=== PATIENT | male | born 1945 | race Caucasian/White ===

== ENCOUNTER 2020-11-15 06:08 | Emergency (ER) | payer MEDICARE, SELFPAY ==
[2020-11-15] VITALS (52 sets, daily range): BP systolic 87–146; BP diastolic 56–77; PULSE 60–167; RESP 3–21; TEMP 36.3; O2SAT 95–100; BMI 23.1
--- NOTE | 2020-11-15 06:19 | ED.CHESTPAIN ---
HPI - Chest Pain <Manfred Stern MD - Last Filed: 11/15/20 23:38> General Chief Complaint: Arrhythmia/Palpitations Stated Complaint: Irregular Heart Beat Time Seen by Provider: 11/15/20 06:19 Source: patient Mode of arrival: Ambulatory Limitations: no limitations History of Present Illness HPI narrative: The patient arrives with palpitations. He woke about 4:15 this morning from sleep with the symptoms. He has history of paroxysmal atrial fib. His 1st episode was about 2 years ago, he underwent cardioversion. He has had another episode since then, he apparently was converted with acupuncture. He is on medications for chronic AFib, no medications for hypertension he has no associated chest pain. He denies orthopnea or peripheral edema. He denies recent illness. He has had no headache, sore throat, cough or dyspnea. He has no peripheral edema with the symptoms. He is a nonsmoker. Related Data Allergies Allergy/AdvReac Type Severity Reaction Status Date / Time hay fever Allergy Uncoded 11/15/20 06:22 Review of Systems <Manfred Stern MD - Last Filed: 11/15/20 23:38> Constitutional Constitutional: Denies chills, Denies fever(s), Denies headache(s), Denies lethargy and Reports weakness Eyes Eyes: Denies change in vision ENT Ears, Nose, Mouth, and Throat: Denies headache(s) and Denies sore throat Cardiovascular Cardiovascular: Denies chest pain, Reports irregular heart rhythm, Denies lightheadedness, Reports palpitations, Denies dyspnea and Denies orthopnea Respiratory Respiratory: Denies cough, Denies dyspnea and Denies wheezing Gastrointestinal Gastrointestinal: Denies abdominal pain, Denies diarrhea, Denies nausea and Denies vomiting Musculoskeletal Comments: No lower extremity edema or tenderness. Integumentary/Breasts Skin/Breast: Denies rash Neurologic Neurologic: Denies confusion, Denies headache(s) and Reports weakness Comments: No focal numbness or weakness. Psychiatric Psychiatric: Denies anxiety and Denies confusion Endocrine Endocrine: Reports palpitations Allergic/Immunologic Allergic/Immunologic: Denies wheezing Patient History <Manfred Stern MD - Last Filed: 11/15/20 23:38> Medical History (Updated 11/15/20 @ 07:40 by Manfred Stern MD) History of cardioversion Paroxysmal atrial fibrillation Social History Smoking Status: Never smoker Exam <Manfred Stern MD - Last Filed: 11/15/20 23:38> Initial Vital Signs Initial Vital Signs: Vital Signs Temperature 97.3 F L 11/15/20 06:15 Pulse Rate 156 H 11/15/20 06:15 Respiratory Rate 18 11/15/20 06:15 Blood Pressure 130/72 11/15/20 06:15 Pulse Oximetry 98 11/15/20 06:15 <Shira Abreu DO - Last Filed: 11/15/20 11:02> Narrative Exam Narrative: GENERAL: Alert, in no x3 t, thin, well-appearing male in mild distress. HEENT: Head normocephalic, atraumatic, EOMI, pupils reactive, face symmetric, moist mucous membranes NECK: Supple, full range of motion CARDIOVASCULAR: Irregularly irregular rate and rhythm without murmurs, rubs or gallops. RESPIRATORY: Breath sounds equal bilaterally, no wheezes rales or rhonchi. ABDOMEN: Soft, nontender. Normoactive bowel sounds all 4 quadrants. : No CVA tenderness EXTREMITIES: Patient's left arm is in a shoulder splint. He has significant bruising of the left upper extremity and into his hand. Neurovascularly intact. NEUROLOGICAL: Cranial nerves II through XII grossly intact. Moving all extremities SKIN: Warm, dry, no petechiae, no rashes or lesions. Initial Vital Signs Initial Vital Signs: Vital Signs Temperature 97.3 F L 11/15/20 06:15 Pulse Rate 156 H 11/15/20 06:15 Respiratory Rate 18 11/15/20 06:15 Blood Pressure 130/72 11/15/20 06:15 Pulse Oximetry 98 11/15/20 06:15 <Shira Abreu DO - Last Filed: 11/15/20 11:02> Cardioversion Consent Signed: Yes Stability: Stable Number of attempts (shocks): 1 Joules used: 150 Cardiac rhythm post-cardioversion: normal sinus rhythm. Procedural Sedation Consent signed: Yes Time out performed: Yes Indication: cardioversion ASA Class: I Mallampati Airway Classification: Class II Time of Last PO Intake: 11:00 Preparation: cardiac catheterization technician applied, pulse oximeter, capnometry used, supplemental O2 applied, suction/airway equipment at bedside and IV secured IV Etomidate dose (mg): 7 ED Sedation Level: Minimal Patient Tolerated Procedure: Well Complications: Respiratory Depression-Repositioning Required (mild laryngospasm, O2 ) Interventions: Assist by BVM (1-2 minutes) <Shira Abreu DO - Last Filed: 11/15/20 11:02> CHADS-VASc Congestive heart failure: no Hypertension: no Age 75 years or older: yes Diabetes mellitus: no Stroke, TIA, or TE: no Vascular disease: no Age 65 to 74 years: no Sex category (female): Male CHADS-VASc Score: 2 Course <Manfred Stern MD - Last Filed: 11/15/20 23:38> Orders Ordered: Discontinued Medications Etomidate (Etomidate 2 Mg/Ml 10 Ml Vial) 7 mg IV NOW ONE Stop: 11/15/20 08:17 Last Admin: 11/15/20 08:35 Dose: 7 mg Documented by: MITCHEL Sodium Chloride (Normal Saline 0.9%) 1,000 mls @ 150 mls/hr IV CONT [facility] Last Infusion: 11/15/20 09:48 Dose: 0 mls/hr Documented by: Admin: 11/15/20 06:37 Dose: 150 mls/hr Documented by: REGGIE Metoprolol Tartrate (Metoprolol Tartrate 5 Mg/5 Ml Inj) 5 mg IV Q5M [facility] Stop: 11/15/20 06:41 Last Admin: 11/15/20 06:47 Dose: 5 mg Documented by: Admin: 11/15/20 06:38 Dose: 5 mg Documented by: REGGIE Vital Signs Vital signs: Vital Signs - 8 hr 11/15/20 06:15 11/15/20 06:24 11/15/20 06:25 Temperature 97.3 F L Pulse Rate 156 H 158 H 167 H Respiratory Rate 18 18 20 Blood Pressure 130/72 Blood Pressure [Right Arm] Pulse Oximetry 98 99 98 11/15/20 06:30 11/15/20 06:31 11/15/20 06:35 Temperature Pulse Rate 159 H 157 H 157 H Respiratory Rate 18 16 19 Blood Pressure 115/71 Blood Pressure [Right Arm] Pulse Oximetry 96 96 96 11/15/20 06:38 11/15/20 06:40 11/15/20 06:45 Temperature Pulse Rate 150 H 156 H 147 H Respiratory Rate 14 18 12 Blood Pressure 115/74 122/77 Blood Pressure [Right Arm] Pulse Oximetry 96 96 97 11/15/20 06:46 11/15/20 06:50 11/15/20 06:51 Temperature Pulse Rate 137 H 140 H 139 H Respiratory Rate 13 15 15 Blood Pressure 124/59 L 98/66 Blood Pressure [Right Arm] Pulse Oximetry 97 97 97 11/15/20 06:55 11/15/20 07:00 11/15/20 07:05 Temperature Pulse Rate 139 H 126 H 127 H Respiratory Rate 16 15 13 Blood Pressure 90/60 106/72 110/68 Blood Pressure [Right Arm] Pulse Oximetry 98 97 97 11/15/20 07:10 11/15/20 07:15 11/15/20 07:20 Temperature Pulse Rate 137 H 135 H 124 H Respiratory Rate 13 15 16 Blood Pressure 103/58 L 118/69 126/67 Blood Pressure [Right Arm] Pulse Oximetry 98 97 98 11/15/20 07:37 11/15/20 07:38 11/15/20 07:40 Temperature Pulse Rate 140 H 134 H 142 H Respiratory Rate 6 L 3 L 15 Blood Pressure 107/58 L Blood Pressure [Right Arm] Pulse Oximetry 97 97 96 11/15/20 07:45 11/15/20 07:50 11/15/20 07:55 Temperature Pulse Rate 139 H 139 H 139 H Respiratory Rate 14 15 14 Blood Pressure Blood Pressure [Right Arm] Pulse Oximetry 96 96 96 11/15/20 08:00 11/15/20 08:05 11/15/20 08:10 Temperature Pulse Rate 128 H 133 H 146 H Respiratory Rate 16 20 10 L Blood Pressure Blood Pressure [Right Arm] Pulse Oximetry 96 96 97 11/15/20 08:15 11/15/20 08:30 11/15/20 08:31 Temperature Pulse Rate 142 H 142 H Respiratory Rate 17 18 Blood Pressure 87/62 L 104/68 Blood Pressure [Right Arm] 127/74 Pulse Oximetry 98 97 11/15/20 08:35 11/15/20 08:37 11/15/20 08:40 Temperature Pulse Rate 152 H 73 67 Respiratory Rate 14 16 14 Blood Pressure 104/76 127/74 146/77 H Blood Pressure [Right Arm] Pulse Oximetry 97 96 100 11/15/20 08:45 11/15/20 08:50 11/15/20 08:55 Temperature Pulse Rate 65 64 65 Respiratory Rate 15 17 16 Blood Pressure 118/73 117/74 133/76 Blood Pressure [Right Arm] Pulse Oximetry 99 98 98 11/15/20 09:00 11/15/20 09:05 11/15/20 09:10 Temperature Pulse Rate 65 62 62 Respiratory Rate 18 17 12 Blood Pressure 116/72 Blood Pressure [Right Arm] Pulse Oximetry 96 96 96 11/15/20 09:15 11/15/20 09:20 11/15/20 09:25 Temperature Pulse Rate 61 61 60 Respiratory Rate 14 14 15 Blood Pressure 103/64 Blood Pressure [Right Arm] Pulse Oximetry 95 96 96 11/15/20 09:30 11/15/20 09:35 11/15/20 09:40 Temperature Pulse Rate 64 62 60 Respiratory Rate 21 13 15 Blood Pressure 99/63 Blood Pressure [Right Arm] Pulse Oximetry 96 95 96 11/15/20 09:45 11/15/20 09:50 11/15/20 09:55 Temperature Pulse Rate 62 62 62 Respiratory Rate 16 15 13 Blood Pressure 101/65 Blood Pressure [Right Arm] Pulse Oximetry 97 97 97 11/15/20 10:00 11/15/20 10:05 11/15/20 10:10 Temperature Pulse Rate 62 60 64 Respiratory Rate 15 17 19 Blood Pressure 101/56 L Blood Pressure [Right Arm] Pulse Oximetry 96 95 98 11/15/20 10:15 Temperature Pulse Rate 64 Respiratory Rate 14 Blood Pressure 110/62 Blood Pressure [Right Arm] Pulse Oximetry 97 <Shira Abreu, - Last Filed: 11/15/20 11:02> Orders Ordered: Discontinued Medications Etomidate (Etomidate 2 Mg/Ml 10 Ml Vial) 7 mg IV NOW ONE Stop: 11/15/20 08:17 Last Admin: 11/15/20 08:35 Dose: 7 mg Documented by: MITCHEL Sodium Chloride (Normal Saline 0.9%) 1,000 mls @ 150 mls/hr IV CONT [facility] Last Infusion: 11/15/20 09:48 Dose: 0 mls/hr Documented by: Admin: 01/19/21 06:37 Dose: 150 mls/hr Documented by: REGGIE Metoprolol Tartrate (Metoprolol Tartrate 5 Mg/5 Ml Inj) 5 mg IV Q5M [facility] Stop: 11/15/20 06:41 Last Admin: 11/15/20 06:47 Dose: 5 mg Documented by: Admin: 11/15/20 06:38 Dose: 5 mg Documented by: REGGIE Reevaluation(s) Reevaluation #1: Patient seen by myself after sign out from Dr. Stern. Reviewed patient's HPI, ROS and examined patient. Discussed possible cardioversion, patient HR has been slowly drifting down so will monitor to see if he continues to improve and possibly cardiovert. Patient is on ASA 81mg x 3 and no additional medications. He has seen cardiology once after his initial episode of atrial fibrillation which occurred during a knee replacement. Patient states he was cardioverted at the hospital and believes in the emergency department. He had one additional episode about a year ago and no additional since then. He denies any other symptoms currently than fast heartbeat, denies chest pain, shortness of breath, no diaphoresis, no nausea or vomiting, patient denies any swelling in extremities. He denies any other surgical interventions besides knee surgery. No allergies to medications. Patient states he has not had any complications with sedation in past. Patient's CHADS-VASC score is 2, we did discuss anticoagulation and that it is recommended. Time: 07:25 Reevaluation #2: Status post cardioversion patient is in normal sinus rhythm and maintaining. Discussed with patient he does not wish to start any new medications today but is happy to take a full-dose aspirin daily. Patient also states that he would be happy to talk with his physician about his anticoagulation choices and will make an appointment. Was also given a referral to Cardiology. All questions answered with patient and his . We did discuss that patient has some increased risk for stroke with his history of proximal AFib, we also discussed that if he has frequent recurrent episodes or if he has episodes that last longer he may not always be a candidate for cardioversion in the emergency department if he is not fully anticoagulated, and that the risk versus benefits with anticoagulation should be considered. Time: 10:15 Vital Signs Vital signs: Vital Signs - 8 hr 11/15/20 06:15 11/15/20 06:24 11/15/20 06:25 Temperature 97.3 F L Pulse Rate 156 H 158 H 167 H Respiratory Rate 18 18 20 Blood Pressure 130/72 Blood Pressure [Right Arm] Pulse Oximetry 98 99 98 11/15/20 06:30 11/15/20 06:31 11/15/20 06:35 Temperature Pulse Rate 159 H 157 H 157 H Respiratory Rate 18 16 19 Blood Pressure 115/71 Blood Pressure [Right Arm] Pulse Oximetry 96 96 96 11/15/20 06:38 11/15/20 06:40 11/15/20 06:45 Temperature Pulse Rate 150 H 156 H 147 H Respiratory Rate 14 18 12 Blood Pressure 115/74 122/77 Blood Pressure [Right Arm] Pulse Oximetry 96 96 97 11/15/20 06:46 11/15/20 06:50 11/15/20 06:51 Temperature Pulse Rate 137 H 140 H 139 H Respiratory Rate 13 15 15 Blood Pressure 124/59 L 98/66 Blood Pressure [Right Arm] Pulse Oximetry 97 97 97 11/15/20 06:55 11/15/20 07:00 11/15/20 07:05 Temperature Pulse Rate 139 H 126 H 127 H Respiratory Rate 16 15 13 Blood Pressure 90/60 106/72 110/68 Blood Pressure [Right Arm] Pulse Oximetry 98 97 97 11/15/20 07:10 11/15/20 07:15 11/15/20 07:20 Temperature Pulse Rate 137 H 135 H 124 H Respiratory Rate 13 15 16 Blood Pressure 103/58 L 118/69 126/67 Blood Pressure [Right Arm] Pulse Oximetry 98 97 98 11/15/20 07:37 11/15/20 07:38 11/15/20 07:40 Temperature Pulse Rate 140 H 134 H 142 H Respiratory Rate 6 L 3 L 15 Blood Pressure 107/58 L Blood Pressure [Right Arm] Pulse Oximetry 97 97 96 11/15/20 07:45 11/15/20 07:50 11/15/20 07:55 Temperature Pulse Rate 139 H 139 H 139 H Respiratory Rate 14 15 14 Blood Pressure Blood Pressure [Right Arm] Pulse Oximetry 96 96 96 11/15/20 08:00 11/15/20 08:05 11/15/20 08:10 Temperature Pulse Rate 128 H 133 H 146 H Respiratory Rate 16 20 10 L Blood Pressure Blood Pressure [Right Arm] Pulse Oximetry 96 96 97 01/19/21 08:15 11/15/20 08:30 11/15/20 08:31 Temperature Pulse Rate 142 H 142 H Respiratory Rate 17 18 Blood Pressure 87/62 L 104/68 Blood Pressure [Right Arm] 127/74 Pulse Oximetry 98 97 11/15/20 08:35 11/15/20 08:37 11/15/20 08:40 Temperature Pulse Rate 152 H 73 67 Respiratory Rate 14 16 14 Blood Pressure 104/76 127/74 146/77 H Blood Pressure [Right Arm] Pulse Oximetry 97 96 100 11/15/20 08:45 11/15/20 08:50 11/15/20 08:55 Temperature Pulse Rate 65 64 65 Respiratory Rate 15 17 16 Blood Pressure 118/73 117/74 133/76 Blood Pressure [Right Arm] Pulse Oximetry 99 98 98 11/15/20 09:00 11/15/20 09:05 11/15/20 09:10 Temperature Pulse Rate 65 62 62 Respiratory Rate 18 17 12 Blood Pressure 116/72 Blood Pressure [Right Arm] Pulse Oximetry 96 96 96 11/15/20 09:15 11/15/20 09:20 11/15/20 09:25 Temperature Pulse Rate 61 61 60 Respiratory Rate 14 14 15 Blood Pressure 103/64 Blood Pressure [Right Arm] Pulse Oximetry 95 96 96 11/15/20 09:30 11/15/20 09:35 11/15/20 09:40 Temperature Pulse Rate 64 62 60 Respiratory Rate 21 13 15 Blood Pressure 99/63 Blood Pressure [Right Arm] Pulse Oximetry 96 95 96 11/15/20 09:45 11/15/20 09:50 11/15/20 09:55 Temperature Pulse Rate 62 62 62 Respiratory Rate 16 15 13 Blood Pressure 101/65 Blood Pressure [Right Arm] Pulse Oximetry 97 97 97 11/15/20 10:00 11/15/20 10:05 11/15/20 10:10 Temperature Pulse Rate 62 60 64 Respiratory Rate 15 17 19 Blood Pressure 101/56 L Blood Pressure [Right Arm] Pulse Oximetry 96 95 98 11/15/20 10:15 Temperature Pulse Rate 64 Respiratory Rate 14 Blood Pressure 110/62 Blood Pressure [Right Arm] Pulse Oximetry 97 MDM - Chest Pain <Manfred Stern MD - Last Filed: 11/15/20 23:38> Lab Data Result diagrams: 11/15/20 06:17 11/15/20 06:17 Labs: Lab Results 11/15/20 11/15/20 11/15/20 Range/Units 06:15 06:17 06:17 WBC 5.1 (4.5-11.0) X10^3/uL RBC 5.37 (4.5-5.9) X10^6/uL Hgb 17.1 (13.5-17.5) g/dL Hct 50.5 (41-53) % MCV 93.9 (80-100) fL MCH 31.9 (26-34) PG MCHC 33.9 (30-36) % RDW 13.6 (11.6-14.8) % Plt Count 181 (150-400) X10^3/uL Neut % (Auto) 48.0 L (50-75) % Lymph % (Auto) 37.4 (25-40) % [place] % (Auto) 9.2 (3-14) % Eos % (Auto) 4.6 H (2-4) % Baso % (Auto) 0.8 (0-2) % Neut # (Auto) 2400 (9023-2784) /uL Lymph # (Auto) 1900 (7037-1849) /uL [place] # (Auto) 500 (0-900) /uL Eos # (Auto) 200 (0-450) /uL Baso # (Auto) 0 (0-100) /uL PT 10.4 (10.1-12.7) SECONDS INR 0.9 (0.9-1.3) Sodium (137-145) mmol/L Potassium (3.4-5.1) mmol/L Chloride (98-107) mmol/L Carbon Dioxide (22-32) mmol/L BUN (9-20) mg/dL Creatinine (0.66-1.25) mg/dL Estimated GFR (>60) mL/min BUN/Creatinine Ratio (6-22) Glucose (80-110) mg/dL Calcium (8.4-10.2) mg/dL Magnesium (1.6-2.3) mg/dL Total Creatine Kinase (55-170) U/L CK-MB (CK-2) (<2.37) ng/mL CK-MB (CK-2) Rel Index (1.5-5.0) % Troponin I (0.01-0.034) ng/mL SARS-CoV-2 (PCR) Negative (Negative) 11/15/20 Range/Units 06:17 WBC (4.5-11.0) X10^3/uL RBC (4.5-5.9) X10^6/uL Hgb (13.5-17.5) g/dL Hct (41-53) % MCV (80-100) fL MCH (26-34) PG MCHC (30-36) % RDW (11.6-14.8) % Plt Count (150-400) X10^3/uL Neut % (Auto) (50-75) % Lymph % (Auto) (25-40) % [place] % (Auto) (3-14) % Eos % (Auto) (2-4) % Baso % (Auto) (0-2) % Neut # (Auto) (2980-4444) /uL Lymph # (Auto) (9682-6137) /uL [place] # (Auto) (0-900) /uL Eos # (Auto) (0-450) /uL Baso # (Auto) (0-100) /uL PT (10.1-12.7) SECONDS INR (0.9-1.3) Sodium 138 (137-145) mmol/L Potassium 4.5 (3.4-5.1) mmol/L Chloride 106 (98-107) mmol/L Carbon Dioxide 30 (22-32) mmol/L BUN 17 (9-20) mg/dL Creatinine 0.80 (0.66-1.25) mg/dL Estimated GFR > 60.0 (>60) mL/min BUN/Creatinine Ratio 21.3 (6-22) Glucose 98 (80-110) mg/dL Calcium 10.5 H (8.4-10.2) mg/dL Magnesium 2.0 (1.6-2.3) mg/dL Total Creatine Kinase 152 (55-170) U/L CK-MB (CK-2) 3.30 H (<2.37) ng/mL CK-MB (CK-2) Rel Index 2.2 (1.5-5.0) % Troponin I < 0.012 (0.01-0.034) ng/mL SARS-CoV-2 (PCR) (Negative) <Shira Abreu, DO - Last Filed: 11/15/20 11:02> Lab Data Attestation: I reviewed the patient's lab results. Labs: Lab Results 11/15/20 11/15/20 11/15/20 Range/Units 06:15 06:17 06:17 WBC 5.1 (4.5-11.0) X10^3/uL RBC 5.37 (4.5-5.9) X10^6/uL Hgb 17.1 (13.5-17.5) g/dL Hct 50.5 (41-53) % MCV 93.9 (80-100) fL MCH 31.9 (26-34) PG MCHC 33.9 (30-36) % RDW 13.6 (11.6-14.8) % Plt Count 181 (150-400) X10^3/uL Neut % (Auto) 48.0 L (50-75) % Lymph % (Auto) 37.4 (25-40) % [place] % (Auto) 9.2 (3-14) % Eos % (Auto) 4.6 H (2-4) % Baso % (Auto) 0.8 (0-2) % Neut # (Auto) 2400 (5007-1968) /uL Lymph # (Auto) 1900 (4199-6447) /uL [place] # (Auto) 500 (0-900) /uL Eos # (Auto) 200 (0-450) /uL Baso # (Auto) 0 (0-100) /uL PT 10.4 (10.1-12.7) SECONDS INR 0.9 (0.9-1.3) Sodium (137-145) mmol/L Potassium (3.4-5.1) mmol/L Chloride (98-107) mmol/L Carbon Dioxide (22-32) mmol/L BUN (9-20) mg/dL Creatinine (0.66-1.25) mg/dL Estimated GFR (>60) mL/min BUN/Creatinine Ratio (6-22) Glucose (80-110) mg/dL Calcium (8.4-10.2) mg/dL Magnesium (1.6-2.3) mg/dL Total Creatine Kinase (55-170) U/L CK-MB (CK-2) (<2.37) ng/mL CK-MB (CK-2) Rel Index (1.5-5.0) % Troponin I (0.01-0.034) ng/mL SARS-CoV-2 (PCR) Negative (Negative) 11/15/20 Range/Units 06:17 WBC (4.5-11.0) X10^3/uL RBC (4.5-5.9) X10^6/uL Hgb (13.5-17.5) g/dL Hct (41-53) % MCV (80-100) fL MCH (26-34) PG MCHC (30-36) % RDW (11.6-14.8) % Plt Count (150-400) X10^3/uL Neut % (Auto) (50-75) % Lymph % (Auto) (25-40) % [place] % (Auto) (3-14) % Eos % (Auto) (2-4) % Baso % (Auto) (0-2) % Neut # (Auto) (4066-0368) /uL Lymph # (Auto) (9514-2333) /uL [place] # (Auto) (0-900) /uL Eos # (Auto) (0-450) /uL Baso # (Auto) (0-100) /uL PT (10.1-12.7) SECONDS INR (0.9-1.3) Sodium 138 (137-145) mmol/L Potassium 4.5 (3.4-5.1) mmol/L Chloride 106 (98-107) mmol/L Carbon Dioxide 30 (22-32) mmol/L BUN 17 (9-20) mg/dL Creatinine 0.80 (0.66-1.25) mg/dL Estimated GFR > 60.0 (>60) mL/min BUN/Creatinine Ratio 21.3 (6-22) Glucose 98 (80-110) mg/dL Calcium 10.5 H (8.4-10.2) mg/dL Magnesium 2.0 (1.6-2.3) mg/dL Total Creatine Kinase 152 (55-170) U/L CK-MB (CK-2) 3.30 H (<2.37) ng/mL CK-MB (CK-2) Rel Index 2.2 (1.5-5.0) % Troponin I < 0.012 (0.01-0.034) ng/mL SARS-CoV-2 (PCR) (Negative) Imaging Data Chest x-ray: Attestation: I personally reviewed and interpreted this imaging study as follows: My Impression: no acute process noted. ECG Data Attestation: I personally reviewed and interpreted this ECG as follows: Prior ECG tracings: not available for review Interpretation: AFib with RVR rate of 149 QRS 82 and QTC of 371. No ST elevation depression appreciated. No priors available for review. EKG #2 Normal sinus rhythm. Rate of 64, pr 167, qrs 82, qtc of 348. No ST elevation or depression. MDM Narrative Medical decision making narrative: This is a 75-year-old male with a history of paroxysmal atrial fibrillation who has had 2 prior episodes over the past 2 years. Patient's initial episode occurred when he was having a knee replacement. Patient takes 243 mg aspirin daily and no other regular medications. I do feel that he is an appropriate candidate for cardioversion today. Risks and benefits were discussed. Patient's labs, EKG and chest x-ray show AFib with RVR but no other major lab abnormalities. Patient elected for cardioversion which was successful and patient is in normal sinus rhythm. We did discuss that patient would be appropriate for stronger anticoagulation I also recommend that he follow up with Cardiology, he did express interest but would like to have that conversation in a little bit more depth with his primary care physician or Cardiology. Discharge Plan Departure Patient Disposition: Home Clinical Impression: Atrial fibrillation with RVR Instructions: DI for Atrial Fibrillation Activity Restrictions/Additional Instructions: Follow up with cardiology. Take medication as prescribed, at minimum I recommend 324 mg of aspirin daily. You would likely benefit from stronger anticoagulation to decrease your stroke risk. If you do not feel comfortable starting that medication today you can discuss the risks versus benefits with primary care or with the executive vice president and chief operating officer. Return to the ER for recurrent fast or irregular heartbeat, chest pain, shortness of breath, lightheadedness or passing out, persistent vomiting, swelling in her extremities or other new or concerning symptoms. Referrals: Manfred Benavides MD [Primary Care Provider] - Sanjuana Waterman MD [Physician] -
--- NOTE | 2020-11-15 06:25 | DI.RAD.S_ITS ---
PROCEDURE: XR CHEST 1V INDICATIONS: ATRIAL FIBRILLATION TECHNIQUE: One view of the chest was acquired. COMPARISON: [facility], CR, XR CHEST 1VW (PORTABLE), 04/09/2017, 17:54. FINDINGS: Surgical changes and devices: None. Lungs and pleura: Lungs are clear. No pleural effusions or pneumothorax. Mediastinum: Mediastinal contours appear normal. Heart size is normal. Bones and chest wall: No suspicious bony lesions. Overlying soft tissues appear unremarkable. IMPRESSION: No acute cardiopulmonary disease process. Dictated by: Lucrecia Moreno MD, PhD on 11/15/2020 at 8:55 Approved by: Lucrecia Moreno MD, PhD on 11/15/2020 at 8:56
[2020-11-15] MEDS: SODIUM CHLORIDE 0.9% 1,000 ML 150 ML IV (06:37)
[2020-11-15 06:38] LABS: Add Manual Diff / Slide Review NO; Basophils Absolute Auto 0 /uL (0-100); Basophils Percent Auto 0.8 % (0-2); Eosinophils Absolute Auto 200 /uL (0-450); Eosinophils Percent Auto 4.6 % (2-4); Hematocrit 50.5 % (41-53); Hemoglobin 17.1 g/dL (13.5-17.5); INR 0.9 (0.9-1.3); Lymphocytes Absolute Auto 1900 /uL (1100-4500); Lymphocytes Percent Auto 37.4 % (25-40); Mean Corpuscular HGB Conc 33.9 % (30-36); Mean Corpuscular Hemoglobin 31.9 PG (26-34); Mean Corpuscular Volume 93.9 fL (80-100); Monocytes Absolute Auto 500 /uL (0-900); Monocytes Percent Auto 9.2 % (3-14); Neutrophils Absolute Auto 2400 /uL (1500-7000); Platelet Count 181 X10^3/uL (150-400); Prothrombin Time 10.4 SECONDS (10.1-12.7); Red Blood Cell Count 5.37 X10^6/uL (4.5-5.9); Red Cell Distribution Width 13.6 % (11.6-14.8); White Blood Cell Count 5.1 X10^3/uL (4.5-11.0)
[2020-11-15] MEDS: METOPROLOL TARTRATE 5 MG/5 ML INJ IV ×2 (06:38→06:47)
[2020-11-15 06:43] LABS: BUN Creatinine Ratio 21.3 (6-22); Blood Urea Nitrogen 17 mg/dL (9-20); Calcium 10.5 mg/dL (8.4-10.2); Carbon Dioxide 30 mmol/L (22-32); Chloride 106 mmol/L (98-107); Creatine Kinase 152 U/L (55-170); Estimated Glomerular Filt Rate > 60.0 mL/min (>60); Glucose 98 mg/dL (80-110); HEMOLYSIS 29 (0-50); Potassium 4.5 mmol/L (3.4-5.1); Sodium 138 mmol/L (137-145)
[2020-11-15 06:44] LABS: COVID19 -Nasal RAPID Negative (Negative)
[2020-11-15 06:54] LABS: Troponin I < 0.012 ng/mL (0.01-0.034)
[2020-11-15 06:57] LABS: CKMB % Relative Index 2.2 % (1.5-5.0)
[2020-11-15] MEDS: ETOMIDATE 2 MG/ML 10 ML VIAL 7 MG IV (08:35)
== END 2020-11-15 10:30 | disposition home or self-care (01) ==
PROVIDERS: Emergency Medicine; Emergency Provider Emergency Medicine; PCP Family Medicine; Referring Provider Emergency Medicine
DX: I48.0 Paroxysmal atrial fibrillation (principal); Z20.822 Contact with and (suspected) exposure to COVID-19
CPT/HCPCS: 36415; 71045; 80048; 82550; 82553; 83735; 84484; 85025; 85610; 87635; 92960; 93005; 93010; 96361; 96374; 99284; 99285; C9803

== ENCOUNTER → 2020-11-29 13:24 | Outpatient (CLI) | payer MEDICARE, SELFPAY ==
--- NOTE | 2020-11-29 | DI.ECHO.S_ITS ---
[facility] +---------+ : : [address] : [address] : : : : [id number] : : : : Phone: [phone]---------+ Echocardiogram Report + + :Name: PAULIE SAUCEDO Study Date: 11/29/2020 Height: 69 in : :[facility] ReadingLocation: Weight: 154 lb : : Gender: Male BSA: 1.8 m2 : :: 1945 Age: 75 yrs BP: 127/74 mmHg: :Reason For Study: ATRIAL FIBRILLAITON : :Ordering Physician: SAURAV, : :JESSEE Performed By: Dinorah Grimes : :Referring: JESSEE MG L : + + Interpretation Summary Left ventricular systolic function appears normal with an estimated ejection fraction of 60 to 65% without any focal wall motion abnormality. Left ventricular size and wall thickness appear normal. Diastolic function is likely normal with normal filling pressures. The right ventricle appears normal. Right ventricular systolic pressure cannot be estimated but CVP is likely around 3 mmHg. Both atria are normal in size. The aortic valve is slightly sclerotic but opens well with only mild aortic regurgitation. There is no other significant valvular abnormality. The aortic root and ascending aorta are borderline to mildly enlarged. The patient was in sinus rhythm at 67 to 76 bpm during the exam. Procedure: A two-dimensional transthoracic echocardiogram with color flow and Doppler was performed. The study quality was technically adequate. There is no prior echocardiogram noted for this patient. The patient was in sinus rhythm with heart rates between 67-76 bpm during the exam. Left Ventricle: The left ventricle appears normal in size, wall thickness, and systolic function without any focal wall motion abnormalities. The ejection fraction is estimated to be 60-65%. Diastolic parameters suggest probable normal left ventricular diastolic function and normal filling pressures. Right Ventricle: The right ventricle is normal in size and function. Atria: Both atria are normal in size. There is no Doppler evidence for an interatrial shunt. Mitral Valve: The mitral valve is normal in structure and function. There is trace mitral regurgitation. Aortic Valve: The aortic valve is trileaflet. The aortic valve is slightly calcified. The aortic valve opens well. There is no aortic valve stenosis. There is mild aortic regurgitation. Tricuspid Valve: The tricuspid valve is normal in structure and function. There is trace tricuspid regurgitation. Pulmonary artery pressures cannot be estimated because of the lack of a measurable TR jet velocity but the IVC suggests a CVP of around 3 mmHg. Pulmonic Valve: The pulmonic valve is not well seen, but is grossly normal. There is trace pulmonic regurgitation. There is no other significant valvular heart disease. Great Vessels: The aortic root is borderline dilated. The ascending aorta is mildly enlarged. The IVC is of normal diameter and collapses greater than 50% with a sniff. This suggests a low right atrial pressure of 3 mm Hg. Pericardium/ Pleura There is no pericardial effusion. There is no pleural effusion. MMode/2D Measurements & Calculations LVIDd: 4.2 cm LVOT diam: 2.0 cm LVIDs: 3.0 cm Ao root diam: 3.9 cm FS: 29.8 % asc Aorta Diam: 3.9 cm EPSS: 0.35 cm Ao Arch Diam (Prox Trans): 2.8 cm IVSd: 0.98 cm LVPWd: 0.86 cm LV celis. diameter/BSA (cm/m^2): 2.3 LV sys. diameter/BSA (cm/m^2): 1.6 LA A2 area: 22.3 cm2 RA long axis: 4.6 cm LA A4 area: 13.7 cm2 RA area: 12.5 cm2 LA length (vol): 4.5 cm RA vol: 28.5 ml LA vol: 58.4 ml RA : 15.4 ml/m2 LA vol index: 31.6 ml/m2 IVC diam: 1.4 cm RVD1 (basal): 3.4 cm TAPSE: 2.2 cm Doppler Measurements & Calculations Ao V2 max: 109.7 cm/sec LVOT Max Rl: 98.5 cm/sec Ao V2 mean: 76.4 cm/sec LV V1 max P.9 mmHg Ao max P.8 mmHg LV V1 VTI: 20.1 cm Ao mean P.6 mmHg ROBINA(I,D): 3.3 cm2 Ao V2 VTI: 20.1 cm ROBINA(V,D): 2.9 cm2 sev ratio: 1.0 ROBINA indexed to BSA (cm^2/m^2): 1.8 MV E max rl: 43.0 cm/sec PA V2 max: 63.8 cm/sec MV A max rl: 46.8 cm/sec PA V2 mean: 44.0 cm/sec MV E/A: 0.92 PA mean P.89 mmHg Med Peak E' Rl: 6.9 cm/sec PA pr(Accel): 37.9 mmHg E/E' med: 6.2 Lat Peak E' Rl: 11.2 cm/sec E/E' lat: 3.8 E/e' average: 5.0 MV dec time: 0.26 sec SV(OT): 65.3 ml Reading Physician:03:39 PM
== END ==
PROVIDERS: PCP Family Medicine; Referring Provider Family Medicine; Visit Provider Family Medicine
DX: I35.1 Nonrheumatic aortic (valve) insufficiency (principal); I77.89 Other specified disorders of arteries and arterioles; I48.91 Unspecified atrial fibrillation
CPT/HCPCS: 93306